=== PATIENT | male | born 1995 | race Caucasian/White ===

== ENCOUNTER 2018-02-10 21:55 | Emergency (ER) | payer BC ==
[2018-02-10 22:46] LABS: ABS Basophils 0 10^3/ul (0-0.2); ABS Eosinophils 0.1 10^3/ul (0-0.6); ABS Lymphocytes 1.6 10^3/ul (1.0-4.8); ABS Monocytes 0.3 10^3/ul (0-0.8); ABS Neutrophils 2.7 10^3/ul (1.5-7.7); ABS Nucleated RBC 0 10^3/ul; Hematocrit 47 % (42-52); Hemoglobin 16.3 g/dl (14.0-18.0); Lymphocyte % 33.2 % (25-47); Mean Corpuscular HGB Conc 35 g/dl (31-36); Mean Corpuscular Hemoglobin 30 pg (27-31); Mean Corpuscular Volume 85 fL (80-94); Mean Platelet Volume 6.7 um3 (7.4-10.4); Nucleated Red Blood Cells % 0; Platelet Count 314 10^3/ul (150-450); Red Cell Distribution Width 13 % (10.5-15); White Blood Count 4.7 10^3/ul (3.5-10.8)
[2018-02-10 23:03] LABS: EGFR Non-African American 82.8 (>60)
[2018-02-10 23:25] LABS: Urine Appearance Clear; Urine Color Yellow; Urine Ketones NEG (Negative); Urine Protein 1+(30 mg/dL) (Negative); Urine Specific Gravity 1.035 (1.010-1.030); Urine Urobilinogen NEG (Negative)
[2018-02-10 23:26] LABS: Urine Blood NEG (Negative)
--- NOTE | 2018-02-10 23:50 | ED ---
Psychiatric Complaint - HPI Summary HPI Summary: Patient is a 22 y/o M presenting to ED with depression. He is a student at [employer] and reports having a "bad" semester so far. Patient has been missing class for the past few weeks, which prompted his professor to call campus police to check on patient. Patient is here voluntary. He denies SI, HI. Patient also reports that he has not been feeling motivated and has had a bad sleep cycle recently. PMHx of depression is noted. Patient used to take Zoloft but stopped 3-4 months ago stating, "I didn't feel like I needed it". On triage , pain is denied, nothing is noted to aggravate/alleviate Sx. Home medications and allergies are reviewed. - History Of Current Complaint Chief Complaint: EDMentalHealth Time Seen by Provider: 02/10/18 22:16 Hx Obtained From: Patient Onset/Duration: Lasting Weeks - patient reports having a "bad" semester, Still Present Timing: Constant Severity Currently: None - pain denied on triage Character: Depressed Aggravating Factor(s): Nothing Alleviating Factor(s): Nothing Has Suicidal: Denies: Thoughts Has Homicidal: Denies: Thoughts - Allergies/Home Medications Allergies/Adverse Reactions: Allergies Allergy/AdvReac Type Severity Reaction Status Date / Time No Known Allergies Allergy Verified 02/10/18 22:02 Home Medications: Home Medications NK [No Home Medications Reported] 02/10/18 [History Confirmed 02/10/18] PMH/Surg Hx/FS Hx/Imm Hx Sensory History: Denies: Hx Legally Blind, Hx Deafness Opthamlomology History: Denies: Hx Legally Blind EENT History: Denies: Hx Deafness - Immunization History Immunizations Up to Date: Yes Infectious Disease History: No Infectious Disease History: Denies: Traveled Outside the [place] in Last 30 Days - Family History Known Family History: Negative: Blood Disorder - Social History Occupation: Student Alcohol Use: Occasionally Substance Use Type: Reports: None Smoking Status (MU): Never Smoked Tobacco Review of Systems Negative: Fever Eyes: Negative Positive: Depressed All Other Systems Reviewed And Are Negative: Yes Physical Exam - Summary Physical Exam Summary: VITAL SIGNS: Reviewed. GENERAL: Patient is a well-developed and nourished male who is lying comfortable in the stretcher. Patient is not in any acute respiratory distress. HEAD AND FACE: No signs of trauma. No ecchymosis, hematomas or skull depressions. No sinus tenderness. EYES: PERRLA, EOMI x 2, No injected conjunctiva, no nystagmus. EARS: Hearing grossly intact. Ear canals and tympanic membranes are within normal limits. MOUTH: Oropharynx within normal limits. NECK: Supple, trachea is midline, no adenopathy, no JVD, no carotid bruit, no c- spine tenderness, neck with full ROM. CHEST: Symmetric, no tenderness at palpation LUNGS: Clear to auscultation bilaterally. No wheezing or crackles. CVS: Regular rate and rhythm, S1 and S2 present, no murmurs or gallops appreciated. ABDOMEN: Soft, non-tender. No signs of distention. No rebound no guarding, and no masses palpated. Bowel sounds are normal. EXTREMITIES: FROM in all major joints, no edema, no cyanosis or clubbing. NEURO: Alert and oriented x 3. No acute neurological deficits. Speech is normal and follows commands. SKIN: Dry and warm PSYCH: patient is cooperative but withdrawn. SI, HI denied. Triage Information Reviewed: Yes Vital Signs On Initial Exam: Initial Vitals Temp Pulse Resp BP Pulse Ox 98.0 F 86 15 119/77 97 02/10/18 21:58 02/10/18 21:58 02/10/18 21:58 02/10/18 21:58 02/10/18 21:58 Vital Signs Reviewed: Yes Diagnostics - Vital Signs Vital Signs Temp Pulse Resp BP Pulse Ox 02/10/18 21:58 98.0 F 86 15 119/77 97 - Laboratory Lab Results: Lab Results 02/10/18 02/10/18 02/10/18 Range/Units 22:39 22:39 22:52 WBC 4.7 (3.5-10.8) 10^3/ul RBC 5.50 H (4.00-5.40) 10^6/ul Hgb 16.3 (14.0-18.0) g/dl Hct 47 (42-52) % MCV 85 (80-94) fL MCH 30 (27-31) pg MCHC 35 (31-36) g/dl RDW 13 (10.5-15) % Plt Count 314 (150-450) 10^3/ul MPV 6.7 L (7.4-10.4) um3 Neut % (Auto) 57.7 (38-83) % Lymph % (Auto) 33.2 (25-47) % Braxton % (Auto) 5.7 (0-7) % Eos % (Auto) 3.0 (0-6) % Baso % (Auto) 0.4 (0-2) % Absolute Neuts (auto) 2.7 (1.5-7.7) 10^3/ul Absolute Lymphs (auto) 1.6 (1.0-4.8) 10^3/ul Absolute Monos (auto) 0.3 (0-0.8) 10^3/ul Absolute Eos (auto) 0.1 (0-0.6) 10^3/ul Absolute Basos (auto) 0 (0-0.2) 10^3/ul Absolute Nucleated RBC 0 10^3/ul Nucleated RBC % 0 Sodium 141 (135-145) mmol/L Potassium TNP Chloride 107 (101-111) mmol/L Carbon Dioxide 28 (22-32) mmol/L Anion Gap 6 (2-11) mmol/L BUN 20 (6-24) mg/dL Creatinine 1.12 (0.67-1.17) mg/dL Est GFR ( Amer) 100.1 (>60) Est GFR (Non-Af Amer) 82.8 (>60) BUN/Creatinine Ratio 17.9 (8-20) Glucose 95 (70-100) mg/dL Calcium 9.7 (8.6-10.3) mg/dL Total Bilirubin 0.40 (0.2-1.0) mg/dL AST TNP ALT 14 (7-52) U/L Alkaline Phosphatase 71 (34-104) U/L Total Protein 7.3 (6.4-8.9) g/dL Albumin 4.9 (3.2-5.2) g/dL Globulin 2.4 (2-4) g/dL Albumin/Globulin Ratio 2.0 (1-3) TSH 0.93 (0.34-5.60) mcIU/mL Urine Color Yellow Urine Appearance Clear Urine pH 5 (5-9) Ur Specific [place] 1.035 H (1.010-1.030) Urine Protein 1+(30 mg/dl) A (Negative) Urine Ketones Neg (Negative) Urine Blood Neg (Negative) Urine Nitrate Neg (Negative) Urine Bilirubin Neg (Negative) Urine Urobilinogen Neg (Negative) Ur Leukocyte Esterase Neg (Negative) Urine Glucose Neg (Negative) Salicylates < 2.50 (<30) mg/dL Urine Opiates Screen (None Detect) Acetaminophen < 15 mcg/mL Ur Barbiturates Screen (None Detect) Ur Phencyclidine Scrn (None Detect) Ur Amphetamines Screen (None Detect) U Benzodiazepines Scrn (None Detect) Urine Cocaine Screen (None Detect) U Cannabinoids Screen (None Detect) Serum Alcohol < 10 (<10) mg/dL 02/10/18 Range/Units 22:52 WBC (3.5-10.8) 10^3/ul RBC (4.00-5.40) 10^6/ul Hgb (14.0-18.0) g/dl Hct (42-52) % MCV (80-94) fL MCH (27-31) pg MCHC (31-36) g/dl RDW (10.5-15) % Plt Count (150-450) 10^3/ul MPV (7.4-10.4) um3 Neut % (Auto) (38-83) % Lymph % (Auto) (25-47) % Braxton % (Auto) (0-7) % Eos % (Auto) (0-6) % Baso % (Auto) (0-2) % Absolute Neuts (auto) (1.5-7.7) 10^3/ul Absolute Lymphs (auto) (1.0-4.8) 10^3/ul Absolute Monos (auto) (0-0.8) 10^3/ul Absolute Eos (auto) (0-0.6) 10^3/ul Absolute Basos (auto) (0-0.2) 10^3/ul Absolute Nucleated RBC 10^3/ul Nucleated RBC % Sodium (135-145) mmol/L Potassium Chloride (101-111) mmol/L Carbon Dioxide (22-32) mmol/L Anion Gap (2-11) mmol/L BUN (6-24) mg/dL Creatinine (0.67-1.17) mg/dL Est GFR ( Amer) (>60) Est GFR (Non-Af Amer) (>60) BUN/Creatinine Ratio (8-20) Glucose (70-100) mg/dL Calcium (8.6-10.3) mg/dL Total Bilirubin (0.2-1.0) mg/dL AST ALT (7-52) U/L Alkaline Phosphatase (34-104) U/L Total Protein (6.4-8.9) g/dL Albumin (3.2-5.2) g/dL Globulin (2-4) g/dL Albumin/Globulin Ratio (1-3) TSH (0.34-5.60) mcIU/mL Urine Color Urine Appearance Urine pH (5-9) Ur Specific [place] (1.010-1.030) Urine Protein (Negative) Urine Ketones (Negative) Urine Blood (Negative) Urine Nitrate (Negative) Urine Bilirubin (Negative) Urine Urobilinogen (Negative) Ur Leukocyte Esterase (Negative) Urine Glucose (Negative) Salicylates (<30) mg/dL Urine Opiates Screen None detected (None Detect) Acetaminophen mcg/mL Ur Barbiturates Screen None detected (None Detect) Ur Phencyclidine Scrn None detected (None Detect) Ur Amphetamines Screen None detected (None Detect) U Benzodiazepines Scrn None detected (None Detect) Urine Cocaine Screen None detected (None Detect) U Cannabinoids Screen None detected (None Detect) Serum Alcohol (<10) mg/dL Result Diagrams: 02/10/18 22:39 02/10/18 22:39 Lab Statement: Any lab studies that have been ordered have been reviewed, and results considered in the medical decision making process. Re-Evaluation - Re-Evaluation First Eval Re-Evaluation Time: 23:34 Comment: Patient medically cleared for MHE. Course/Dx - Course Course Of Treatment: Patient is a 22 y/o M presenting to ED with depression. He is a student at [employer] and reports having a "bad" semester so far. Patient has been missing class for the past few weeks, which prompted his professor to call campus police to check on patient. Patient is here voluntary. He denies SI, HI. Patient also reports that he has not been feeling motivated and has had a bad sleep cycle recently. PMHx of depression is noted. Patient used to take Zoloft but stopped 3-4 months ago stating, "I didn't feel like I needed it". Patient is noted to be cooperative but withdrawn on physical exam. Bloodwork/UA were done. UA showed 1+(30 mg/dl) urine protein, specific gravity 1.035. Toxicology showed salicylates <2.5, acetaminophen <15, and serum alcohol <10. Labs showed 5.5 RBC. Patient was medically cleared for MHE. After MHE and Dr. Gant reviewing the patient's case, Dr. Gant recommends discharge of patient to home and [facility] Dr. Capps is agreeable with this plan. This follow up plan was discussed with patient, who understands and is agreeable with this plan. Dx of depression. - Differential Dx/Clinical Impression Provider Diagnosis: Depression - Physician Notifications Discussed Care Of Patient With: Nasreen Gant Time Discussed With Above Provider: 00:30 Instructed by Provider To: Other - Patient's case was reviewed by Dr. Gant at 0030. Patient will be discharged to home. Dr. Capps is agreeable with this. Discharge - Sign-Out/Discharge Documenting (check all that apply): Patient Departure - discharge - Discharge Plan Condition: Stable Disposition: HOME Patient Education Materials: Depression (ED), Suicide Prevention (ED) [facility]Provider Group[facility] - 2 Days Additional Instructions: RETURN TO THE EMERGENCY DEPARTMENT FOR CHANGING OR WORSENING SYMPTOMS. FOLLOW UP WITH [facility] IN 1-2 DAYS. - Billing Disposition and Condition Condition: STABLE Disposition: Home - Attestation Statements Document Initiated by Mike: Yes Documenting Scribe: Abdirahman Adam Provider For Whom Mike is Documenting (Include Credential): Mike Capps MD Scribe Attestation: Abdirahman Fields scribed for Mike Capps MD on 02/11/18 at [id number]. Scribe Documentation Reviewed: Yes Provider Attestation: The documentation as recorded by the Abdirahman chaudhari accurately reflects the service I personally performed and the decisions made by me, Mike Capps MD
[2018-02-11 03:21] VITALS: BP 144/72
== END 2018-02-11 01:00 | disposition home or self-care (01) ==
LOC: ED 21:55
DX: F32.9 Major depressive disorder, single episode, unspecified (principal)
CPT/HCPCS: 36415; 80053; 80307; 80320; 80329; 81003; 81015; 84443; 85025; 99284; G0480